=== PATIENT | female | born 1960 | race Caucasian/White ===

== ENCOUNTER 2017-06-28 10:04 | Emergency (ER) | payer MEDICAID ==
[~2017-06-28] VITALS: Ht 5283.9 cm; Wt 101.0 kg
[~2017-06-28 10:04] MED LIST: ALBU6.7H3 IH; ATOR20TA PO; BISA10SU60 RC; BREX2TAB PO; ELVI1TAB3 PO; MONT10TA24 PO; PANT40TA4 PO; TOPI50TA24 PO; VENL75TA4 PO
[2017-06-28 12:47] VITALS: BP 137/68
== END 2017-06-28 12:48 | disposition home or self-care (01) ==
LOC: ER 10:04
DX: S20.211A Contusion of right front wall of thorax, initial encounter (principal); G43.909 Migraine, unspecified, not intractable, without status migrainosus; J45.909 Unspecified asthma, uncomplicated; Z87.442 Personal history of urinary calculi; Z88.0 Allergy status to penicillin; Z88.2 Allergy status to sulfonamides; Z79.899 Other long term (current) drug therapy; W01.0XXA Fall on same level from slipping, tripping and stumbling without subsequent striking against object, initial encounter; Y93.89 Activity, other specified; Y92.89 Other specified places as the place of occurrence of the external cause; Y99.8 Other external cause status
CPT/HCPCS: 71101; 99284

== ENCOUNTER 2017-12-02 12:52 | Emergency (ER) | payer MEDICAID ==
[~2017-12-02] VITALS: Ht 160 cm; Wt 100.0 kg
[2017-12-02 13:02] VITALS: BP 115/73
[2017-12-02] MEDS ORDERED: clindamycin 150mg capsule PO ONE (13:15)
[2017-12-02] MEDS ORDERED: CLIN300C37 PO (13:17)
== END 2017-12-02 13:42 | disposition home or self-care (01) ==
LOC: ER 12:53
DX: L03.116 Cellulitis of left lower limb (principal); G43.909 Migraine, unspecified, not intractable, without status migrainosus; J45.909 Unspecified asthma, uncomplicated; Z88.0 Allergy status to penicillin; Z88.2 Allergy status to sulfonamides; Z79.899 Other long term (current) drug therapy
CPT/HCPCS: 99283

== ENCOUNTER 2018-05-05 10:46 | Emergency (ER) | payer MEDICAID ==
[~2018-05-05] VITALS: Ht 160 cm; Wt 91.3 kg
[2018-05-05 11:36] VITALS: BP 118/63
== END 2018-05-05 12:53 | disposition home or self-care (01) ==
LOC: ER 10:46
DX: R22.9 Localized swelling, mass and lump, unspecified (principal); J45.909 Unspecified asthma, uncomplicated; E11.9 Type 2 diabetes mellitus without complications; F17.200 Nicotine dependence, unspecified, uncomplicated; E66.9 Obesity, unspecified; Z88.0 Allergy status to penicillin; Z88.2 Allergy status to sulfonamides; Z79.899 Other long term (current) drug therapy
CPT/HCPCS: 99281

== ENCOUNTER 2019-06-13 08:39 | Emergency (ER) | payer MEDICAID ==
[~2019-06-13] VITALS: Ht 160 cm; Wt 102.0 kg
[~2019-06-13 08:39] MED LIST changes: -MONT10TA24 PO; +MONT10TA26 PO
[2019-06-13] MEDS ORDERED: ipratropium/albuterol 3ml nebule NEB ONE (08:55)
[2019-06-13] MEDS ORDERED: AZIT250T PO (11:02)
[2019-06-13] MEDS ORDERED: BENZ-16 PO (11:02)
[2019-06-13 11:22] VITALS: BP 151/74
== END 2019-06-13 11:23 | disposition home or self-care (01) ==
LOC: ER 08:39
DX: J06.9 Acute upper respiratory infection, unspecified (principal); J45.909 Unspecified asthma, uncomplicated; G43.909 Migraine, unspecified, not intractable, without status migrainosus; G47.30 Sleep apnea, unspecified; E11.9 Type 2 diabetes mellitus without complications; F32.9 Major depressive disorder, single episode, unspecified; Z87.442 Personal history of urinary calculi; Z88.0 Allergy status to penicillin; Z88.2 Allergy status to sulfonamides; Z79.899 Other long term (current) drug therapy
CPT/HCPCS: 71046; 87502; 87503; 94640; 94760; 99284

== ENCOUNTER 2019-09-30 15:38 | Inpatient (IN) | payer MEDICAID ==
[~2019-09-30] VITALS: Ht 160 cm; Wt 105.6 kg
[~2019-09-30 15:38] MED LIST changes: +AZIT250T PO
--- NOTE | 2019-09-30 16:02 | NUR ---
To CT at this time with patient via wheelchair. Patient awake, alert, calm, no signs of distress noted.
--- NOTE | 2019-09-30 16:08 | NUR ---
Patient to Xray via wheelchair, Stroke RN at bedside, TALIA Abad at bedside.
[2019-09-30 16:22] LABS: PARTIAL THROMBOPLASTIN TIME 24 SECONDS (22-32)
[2019-09-30 16:29] LABS: BASOPHILS # (AUTO) 0.1 X10'3 (0-0.2); EOSINOPHILS # (AUTO) 0.3 X10'3 (0-0.9); EOSINOPHILS % (AUTO) 3.7 % (0-6); HEMATOCRIT 42.2 % (35.0-45.0); HEMOGLOBIN 14.3 g/dl (12.0-16.0); LYMPHOCYTES # (AUTO) 2.3 X10'3 (1.1-4.8); LYMPHOCYTES % (AUTO) 29.5 % (21-51); MEAN CORPUSCULAR HEMOGLOBIN 31.9 PG (27.0-31.0); MEAN PLATELET VOLUME 7.4 FL (7.4-10.4); MONOCYTES # (AUTO) 0.5 X10'3 (0-0.9); MONOCYTES % (AUTO) 6.3 % (2-12); NEUTROPHILS # (AUTO) 4.7 X10'3 (1.8-7.7); NEUTROPHILS % (AUTO) 59.5 % (42-75); PLATELET COUNT 282 X10'3 (140-440); RED BLOOD COUNT 4.48 X10'6 (4.20-5.60); RED CELL DISTRIBUTION WIDTH 13.2 % (11.5-14.5); WHITE BLOOD COUNT 7.8 X10'3 (4.5-11.0)
[2019-09-30 16:30] LABS: ALANINE AMINOTRANSFERASE 22 U/L (12-78); ALBUMIN 3.6 G/DL (3.4-5.0); ALBUMIN/GLOBULIN RATIO 0.9 (1.1-1.5); ALKALINE PHOSPHATASE 130 IU/L (46-116); ANION GAP 9 (8-16); ASPARTATE AMINO TRANSFERASE 16 U/L (10-37); BILIRUBIN,TOTAL 0.2 MG/DL (0.1-1.0); BLOOD UREA NITROGEN 28 MG/DL (7-18); BUN/CREATININE RATIO 18.9 (6.6-38.0); CALCIUM 9.5 MG/DL (8.5-10.1); CHLORIDE 110 MMOL/L (99-107); CREATININE 1.48 MG/DL (0.40-0.90); GLUCOSE 114 MG/DL (70-104); POTASSIUM 4.2 MMOL/L (3.5-5.1); SODIUM 143 MMOL/L (135-145); TOTAL CARBON DIOXIDE 24.1 MMOL/L (24-32); TOTAL PROTEIN 7.4 G/DL (6.4-8.2); TROPONIN I < 0.04 NG/ML (0.0-0.05); eGFR 36 ML/MIN
[2019-09-30] MEDS ORDERED: aspirin 81mg tab.chew PO ONE (16:30)
[2019-09-30] MEDS ORDERED: ondansetron/PF 4mg/2ml inj IV PRN (17:10)
[2019-09-30] MEDS ORDERED: acetaminophen 325mg tablet PO PRN (17:10)
[2019-09-30] MEDS ORDERED: mag hydrox/Alum hydrox/simeth 30ml oral suspension PO PRN (17:10)
[2019-09-30] MEDS ORDERED: magnesium hydroxide 30ml (MOM) UD suspension PO PRN (17:10)
[2019-09-30 17:39] LABS: CHOL/HDL RATIO 2.5 (0.00-4.99); CHOLESTEROL 141 MG/DL (0-200); HDL CHOLESTEROL 56 MG/DL (35-60); LDL CHOLESTEROL 67 MG/DL (50-100); TRIGLYCERIDES 107 MG/DL (20-135)
[2019-09-30 20:00] VITALS: BP 129/57
[2019-09-30] MEDS ORDERED: BICT1TAB PO (20:14)
[2019-09-30] MEDS: heparin, porcine 5000 units/ml vial SQ SCH (22:28)
[2019-09-30] MEDS: normal saline 1000ml 1,000 ML IV SCH (22:28)
[2019-09-30] MEDS: topiramate 25mg tablet PO SCH (22:29)
[2019-10-01 02:00] VITALS: BP 94/61
[2019-10-01 06:00] VITALS: BP 159/78
[2019-10-01 06:09] LABS: ALBUMIN 3.1 G/DL (3.4-5.0); ANION GAP 12 (8-16); BASOPHILS # (AUTO) 0.1 X10'3 (0-0.2); BASOPHILS % (AUTO) 1.1 % (0-1); BLOOD UREA NITROGEN 30 MG/DL (7-18); BUN/CREATININE RATIO 21.4 (6.6-38.0); CALCIUM 8.4 MG/DL (8.5-10.1); CHLORIDE 110 MMOL/L (99-107); EOSINOPHILS # (AUTO) 0.3 X10'3 (0-0.9); EOSINOPHILS % (AUTO) 4.7 % (0-6); GLUCOSE 112 MG/DL (70-104); HEMATOCRIT 39.5 % (35.0-45.0); HEMOGLOBIN 13.2 g/dl (12.0-16.0); LYMPHOCYTES # (AUTO) 2.1 X10'3 (1.1-4.8); LYMPHOCYTES % (AUTO) 29.8 % (21-51); MEAN CORPUSCULAR HEMOGLOBIN 31.8 PG (27.0-31.0); MEAN CORPUSCULAR HGB CONC 33.5 g/dL (33.0-36.5); MEAN CORPUSCULAR VOLUME 95.1 FL (78-98); MEAN PLATELET VOLUME 7.4 FL (7.4-10.4); MONOCYTES # (AUTO) 0.5 X10'3 (0-0.9); MONOCYTES % (AUTO) 6.9 % (2-12); NEUTROPHILS # (AUTO) 4.1 X10'3 (1.8-7.7); NEUTROPHILS % (AUTO) 57.5 % (42-75); PLATELET COUNT 245 X10'3 (140-440); POTASSIUM 3.8 MMOL/L (3.5-5.1); RED BLOOD COUNT 4.16 X10'6 (4.20-5.60); RED CELL DISTRIBUTION WIDTH 13.3 % (11.5-14.5); SODIUM 145 MMOL/L (135-145); TOTAL CARBON DIOXIDE 23.5 MMOL/L (24-32); WHITE BLOOD COUNT 7.1 X10'3 (4.5-11.0); eGFR 39 ML/MIN
--- NOTE | 2019-10-01 06:30 | NUR ---
Patient in room [facility] 4015. I have received report from TALIA Sultana and had the opportunity to ask questions and assume patient care.
[2019-10-01] MEDS ORDERED: atorvastatin 10mg tablet PO SCH (08:00)
[2019-10-01] MEDS ORDERED: aspirin 81mg tablet.DR PO SCH (08:00)
[2019-10-01] MEDS: normal saline 1000ml 1,000 ML IV SCH (08:07)
[2019-10-01] MEDS: topiramate 25mg tablet PO SCH (08:10)
[2019-10-01] MEDS: heparin, porcine 5000 units/ml vial SQ SCH (08:10)
[2019-10-01 10:00] VITALS: BP 112/56
[2019-10-01] MEDS ORDERED: BREX0.5T PO (11:36)
[2019-10-01] MEDS ORDERED: MELO-102 PO (11:36)
--- NOTE | 2019-10-01 16:15 | NUR ---
Received discharge orders from Dr. Elizabeth. Shae RN picked up home meds from Pharmacy and pt signed paperwork that she received her medications. IV dc'd with cannula intact. No redness/swelling at insertion site. Bandaid applied over site. Reviewed discharge paperwork with pt and transported via w/c to front parking area for pickup by her in personal vehicle.
== END 2019-10-01 16:15 | disposition home or self-care (01) | DRG 54 ==
LOC: ER 15:39 → ED HOLD 17:08 → ORTHO 4S 19:45 → OBSVTOIN 10-01 08:52
PROVIDERS: ADMIT Family Medicine; ATTEND Family Medicine
PROC: 5A09357 Assistance with Respiratory Ventilation, Less than 24 Consecutive Hours, Continuous Positive Airway Pressure (ICD-10-PCS; principal; 2019-10-01)
DX: G43.909 Migraine, unspecified, not intractable, without status migrainosus (principal); E66.01 Morbid (severe) obesity due to excess calories; E11.9 Type 2 diabetes mellitus without complications; E78.5 Hyperlipidemia, unspecified; G45.9 Transient cerebral ischemic attack, unspecified; G47.30 Sleep apnea, unspecified; J45.909 Unspecified asthma, uncomplicated; Z82.49 Family history of ischemic heart disease and other diseases of the circulatory system; Z82.5 Family history of asthma and other chronic lower respiratory diseases; Z86.73 Personal history of transient ischemic attack (TIA), and cerebral infarction without residual deficits; Z87.442 Personal history of urinary calculi; Z88.0 Allergy status to penicillin; Z88.2 Allergy status to sulfonamides; Z88.8 Allergy status to other drugs, medicaments and biological substances; Z68.41 Body mass index [BMI] 40.0-44.9, adult
CPT/HCPCS: 36415; 70450; 70544; 70551; 71045; 72141; 72146; 80048; 80053; 80061; 82948; 84484; 85025; 85610; 85730; 87081; 92508; 92616; 93005; 93306; 93880; 97110; 97116; 97162; 97530; 99285; G0378; J1644; J7030

== ENCOUNTER 2020-06-19 19:54 | Emergency (ER) | payer MEDICAID ==
[~2020-06-19] VITALS: Ht 160 cm; Wt 107.4 kg
[~2020-06-19 19:54] MED LIST changes: -AZIT250T PO; +BICT1TAB PO; -BISA10SU60 RC; +BREX0.5T PO; -BREX2TAB PO; -ELVI1TAB3 PO; +MELO-102 PO; -MONT10TA26 PO; +MONT10TA97 PO; -PANT40TA4 PO
--- NOTE | 2020-06-19 20:19 | NUR ---
REPORTS HIV POSITIVE
[2020-06-19] MEDS ORDERED: normal saline 1000ML IV soln IVB ONE ×2 (20:25)
[2020-06-19] MEDS ORDERED: ondansetron/PF 4mg/2ml inj IV ONE (20:25)
[2020-06-19] MEDS ORDERED: pantoprazole 40 MG vial IV ONE (20:25)
[2020-06-19 21:35] LABS: BASOPHILS % (AUTO) 0.8 % (0-1); EOSINOPHILS # (AUTO) 0.2 X10'3 (0-0.9); EOSINOPHILS % (AUTO) 2.8 % (0-6); HEMOGLOBIN 14.3 g/dl (12.0-16.0); LYMPHOCYTES # (AUTO) 1.7 X10'3 (1.1-4.8); LYMPHOCYTES % (AUTO) 29.1 % (21-51); MEAN CORPUSCULAR HEMOGLOBIN 31.1 PG (27.0-31.0); MEAN CORPUSCULAR HGB CONC 34.1 g/dL (33.0-36.5); MEAN PLATELET VOLUME 8.2 FL (7.4-10.4); MONOCYTES # (AUTO) 0.4 X10'3 (0-0.9); MONOCYTES % (AUTO) 6.4 % (2-12); NEUTROPHILS # (AUTO) 3.5 X10'3 (1.8-7.7); NEUTROPHILS % (AUTO) 60.9 % (42-75); PLATELET COUNT 255 X10'3 (140-440); RED BLOOD COUNT 4.61 X10'6 (4.20-5.60); RED CELL DISTRIBUTION WIDTH 13.5 % (11.5-14.5); WHITE BLOOD COUNT 5.7 X10'3 (4.5-11.0)
[2020-06-19 21:46] LABS: ALANINE AMINOTRANSFERASE 31 U/L (12-78); ALBUMIN 3.6 G/DL (3.4-5.0); ALBUMIN/GLOBULIN RATIO 0.9 (1.1-1.5); ALKALINE PHOSPHATASE 158 IU/L (46-116); ANION GAP 10 (8-16); ASPARTATE AMINO TRANSFERASE 22 U/L (10-37); BILIRUBIN,TOTAL 0.3 MG/DL (0.1-1.0); BLOOD UREA NITROGEN 16 MG/DL (7-18); BUN/CREATININE RATIO 13.4 (6.6-38.0); CALCIUM 9.5 MG/DL (8.5-10.1); CHLORIDE 110 MMOL/L (99-107); CREATININE 1.19 MG/DL (0.40-0.90); GLUCOSE 131 MG/DL (70-104); LIPASE 66 U/L (73-393); POTASSIUM 3.9 MMOL/L (3.5-5.1); SODIUM 144 MMOL/L (135-145); TOTAL PROTEIN 7.7 G/DL (6.4-8.2); eGFR 46 ML/MIN
[2020-06-19] MEDS ORDERED: ONDA8TAB13 PO (21:49)
[2020-06-19] MEDS ORDERED: PANT-47 PO (21:49)
[2020-06-19 22:09] LABS: CLARITY,URINE CLEAR (Clear); COLOR,URINE YELLOW (Yellow); GLUCOSE, URINE NEGATIVE (Neg); KETONES,URINE NEGATIVE (Neg); LEUKOCYTE ESTERASE ,URINE TRACE (Neg); NITRITES, URINE NEGATIVE (Neg); OCCULT BLOOD,URINE SMALL (Neg); PROTEIN,URINE TRACE mg/dl (Neg); UROBILINOGEN,URINE 0.2 E.U/dL (0.2-1.0)
[2020-06-19 22:16] LABS: UA COLLECTION TYPE CLN CATCH MIDSTREAM
[2020-06-19 22:17] LABS: BACTERIA,URINE FEW /HPF (Neg); RBC,URINE 0-2 /HPF (0-2); SQUAMOUS EPITHELIAL CELL,UR FEW /LPF (FEW)
[2020-06-19 22:38] VITALS: BP 159/97
== END 2020-06-19 22:34 | disposition home or self-care (01) ==
LOC: ER 19:54
DX: K52.9 Noninfective gastroenteritis and colitis, unspecified (principal); R11.2 Nausea with vomiting, unspecified; R10.84 Generalized abdominal pain; G43.909 Migraine, unspecified, not intractable, without status migrainosus; J45.909 Unspecified asthma, uncomplicated; E11.9 Type 2 diabetes mellitus without complications; F32.9 Major depressive disorder, single episode, unspecified; F17.200 Nicotine dependence, unspecified, uncomplicated; Z87.442 Personal history of urinary calculi; Z87.440 Personal history of urinary (tract) infections; Z88.0 Allergy status to penicillin; Z88.2 Allergy status to sulfonamides; Z79.899 Other long term (current) drug therapy
CPT/HCPCS: 36415; 71045; 80053; 81001; 83690; 85025; 87088; 96361; 96374; 96375; 99284; C9113; J2405; J7030

== ENCOUNTER 2021-02-02 18:15 | Emergency (ER) | payer MEDICAID ==
[~2021-02-02] VITALS: Ht 160 cm; Wt 100.0 kg
[~2021-02-02 18:15] MED LIST changes: +MONT10TA32 PO; -MONT10TA97 PO; +ONDA8TAB13 PO; +PANT-47 PO
[2021-02-02 18:35] VITALS: BP 112/62
[2021-02-02 19:23] LABS: BASOPHILS # (AUTO) 0.1 X10'3 (0-0.2); BASOPHILS % (AUTO) 0.8 % (0-1); EOSINOPHILS # (AUTO) 0.3 X10'3 (0-0.9); EOSINOPHILS % (AUTO) 4.9 % (0-6); HEMATOCRIT 41.9 % (35.0-45.0); HEMOGLOBIN 14.2 g/dl (12.0-16.0); LYMPHOCYTES % (AUTO) 14.5 % (21-51); MEAN CORPUSCULAR HEMOGLOBIN 30.9 PG (27.0-31.0); MEAN CORPUSCULAR VOLUME 90.9 FL (78-98); MEAN PLATELET VOLUME 7.1 FL (7.4-10.4); MONOCYTES # (AUTO) 0.4 X10'3 (0-0.9); NEUTROPHILS # (AUTO) 5.2 X10'3 (1.8-7.7); NEUTROPHILS % (AUTO) 73.8 % (42-75); PLATELET COUNT 262 X10'3 (140-440); RED BLOOD COUNT 4.61 X10'6 (4.20-5.60); RED CELL DISTRIBUTION WIDTH 13.7 % (11.5-14.5)
[2021-02-02 19:37] LABS: ALANINE AMINOTRANSFERASE 18 U/L (12-78); ALBUMIN 3.1 G/DL (3.4-5.0); ALBUMIN/GLOBULIN RATIO 0.7 (1.1-1.5); ALKALINE PHOSPHATASE 163 IU/L (46-116); ANION GAP 8 (8-16); ASPARTATE AMINO TRANSFERASE 16 U/L (10-37); BILIRUBIN,TOTAL 0.2 MG/DL (0.1-1.0); BLOOD UREA NITROGEN 17 MG/DL (7-18); BUN/CREATININE RATIO 11.3 (6.6-38.0); CALCIUM 8.8 MG/DL (8.5-10.1); CHLORIDE 105 MMOL/L (99-107); GLUCOSE 234 MG/DL (70-104); POTASSIUM 3.8 MMOL/L (3.5-5.1); SODIUM 139 MMOL/L (135-145); TOTAL CARBON DIOXIDE 25.6 MMOL/L (24-32); TOTAL PROTEIN 7.3 G/DL (6.4-8.2); eGFR 36 ML/MIN
[2021-02-02] MEDS ORDERED: AZIT250T2 PO (19:49)
[2021-02-02] MEDS ORDERED: PRED20TA PO (19:49)
[2021-02-02] MEDS ORDERED: ALBU6.7H9 INH (19:49)
== END 2021-02-02 20:07 | disposition home or self-care (01) ==
LOC: ER 18:16
DX: J40 Bronchitis, not specified as acute or chronic (principal); Z20.822 Contact with and (suspected) exposure to COVID-19; G40.909 Epilepsy, unspecified, not intractable, without status epilepticus; G47.30 Sleep apnea, unspecified; E11.9 Type 2 diabetes mellitus without complications; F17.200 Nicotine dependence, unspecified, uncomplicated; Z87.440 Personal history of urinary (tract) infections; Z21 Asymptomatic human immunodeficiency virus [HIV] infection status; Z87.442 Personal history of urinary calculi; Z79.2 Long term (current) use of antibiotics; Z79.899 Other long term (current) drug therapy; Z88.0 Allergy status to penicillin
CPT/HCPCS: 36415; 71045; 80053; 85025; 87635; 99284; C9803

== ENCOUNTER 2021-02-19 05:05 | Emergency (ER) | payer MEDICAID ==
[~2021-02-19] VITALS: Ht 160 cm; Wt 104.5 kg
[~2021-02-19 05:05] MED LIST changes: +ALBU6.7H9 INH
[2021-02-19] MEDS ORDERED: acetaminophen 325mg tablet PO ONE (05:30)
[2021-02-19] MEDS ORDERED: HYDROcodone/acetaminophen 5mg/325mg tablet PO ONE (05:30)
[2021-02-19] MEDS ORDERED: ketorolac trometh inj. 60 MG/2 ML VIAL IM ONE (05:30)
[2021-02-19] MEDS ORDERED: LIDOcaine 5% patch TP ONE (05:30)
[2021-02-19] MEDS ORDERED: aspirin 81mg tab.chew PO ONE (05:30)
[2021-02-19] MEDS ORDERED: HYDROcodone/acetaminophen 10/325mg tab PO ONE (06:15)
[2021-02-19 06:37] LABS: BASOPHILS # (AUTO) 0.1 X10'3 (0-0.2); BASOPHILS % (AUTO) 1.1 % (0-1); EOSINOPHILS # (AUTO) 0.2 X10'3 (0-0.9); EOSINOPHILS % (AUTO) 3.1 % (0-6); HEMATOCRIT 41.7 % (35.0-45.0); HEMOGLOBIN 14.3 g/dl (12.0-16.0); LYMPHOCYTES # (AUTO) 1.8 X10'3 (1.1-4.8); LYMPHOCYTES % (AUTO) 25.5 % (21-51); MEAN CORPUSCULAR HEMOGLOBIN 31.1 PG (27.0-31.0); MEAN CORPUSCULAR HGB CONC 34.4 g/dL (33.0-36.5); MEAN CORPUSCULAR VOLUME 90.6 FL (78-98); MEAN PLATELET VOLUME 7.3 FL (7.4-10.4); MONOCYTES # (AUTO) 0.4 X10'3 (0-0.9); MONOCYTES % (AUTO) 6.2 % (2-12); NEUTROPHILS # (AUTO) 4.4 X10'3 (1.8-7.7); NEUTROPHILS % (AUTO) 64.1 % (42-75); PLATELET COUNT 295 X10'3 (140-440); RED CELL DISTRIBUTION WIDTH 13.3 % (11.5-14.5); WHITE BLOOD COUNT 6.9 X10'3 (4.5-11.0)
[2021-02-19 07:11] LABS: ALANINE AMINOTRANSFERASE 22 U/L (12-78); ALBUMIN 3.2 G/DL (3.4-5.0); ALBUMIN/GLOBULIN RATIO 0.8 (1.1-1.5); ALKALINE PHOSPHATASE 147 IU/L (46-116); ANION GAP 11 (8-16); ASPARTATE AMINO TRANSFERASE 13 U/L (10-37); BILIRUBIN,TOTAL 0.5 MG/DL (0.1-1.0); BLOOD UREA NITROGEN 19 MG/DL (7-18); BUN/CREATININE RATIO 12.9 (6.6-38.0); CALCIUM 8.5 MG/DL (8.5-10.1); CHLORIDE 107 MMOL/L (99-107); CREATININE 1.47 MG/DL (0.40-0.90); GLUCOSE 170 MG/DL (70-104); POTASSIUM 3.9 MMOL/L (3.5-5.1); SODIUM 141 MMOL/L (135-145); TOTAL CARBON DIOXIDE 22.9 MMOL/L (24-32); TOTAL PROTEIN 7.2 G/DL (6.4-8.2); eGFR 36 ML/MIN
[2021-02-19 07:21] LABS: MAGNESIUM 2.3 MG/DL (1.5-2.4)
[2021-02-19 08:11] VITALS: BP 140/78
[2021-02-19] MEDS ORDERED: HYDR-3972 PO (08:11)
== END 2021-02-19 08:16 | disposition home or self-care (01) ==
LOC: ER 05:05
DX: S29.9XXA Unspecified injury of thorax, initial encounter (principal); R05.9 Cough, unspecified; G43.909 Migraine, unspecified, not intractable, without status migrainosus; J45.909 Unspecified asthma, uncomplicated; G47.30 Sleep apnea, unspecified; E11.9 Type 2 diabetes mellitus without complications; Z87.442 Personal history of urinary calculi; Z87.440 Personal history of urinary (tract) infections; Z21 Asymptomatic human immunodeficiency virus [HIV] infection status; Z88.0 Allergy status to penicillin; Z88.2 Allergy status to sulfonamides; Z79.899 Other long term (current) drug therapy; X58.XXXA Exposure to other specified factors, initial encounter; Y93.89 Activity, other specified; Y92.89 Other specified places as the place of occurrence of the external cause; Y99.8 Other external cause status
CPT/HCPCS: 36415; 71045; 80053; 83735; 83880; 84484; 85025; 93005; 96372; 99285; J1885

== ENCOUNTER 2021-05-11 09:35 | Emergency (ER) | payer MEDICAID ==
[~2021-05-11] VITALS: Ht 160 cm; Wt 104.5 kg
[~2021-05-11 09:35] MED LIST changes: +MONT-40 PO; -MONT10TA32 PO
[2021-05-11 10:06] VITALS: BP 159/85
--- NOTE | 2021-05-11 10:10 | NUR ---
Greeted pt and her spouse.
--- NOTE | 2021-05-11 10:15 | NUR ---
Upon arival pt was placed in the open driveway with a portable heater 10ft away (on high). When I arrived, I greated the patients and began cleaning and adjusting the RAP area. Pt called me a "Rude Bitch!" She said that I was only worried about my own comfort and not hers. I tried to explain that I was clean ing/adjusting the area so that I could place her and her spouse in a warm cubby. She continued to escalate. I notied out charge nurse, TALIA Lopez.
--- NOTE | 2021-05-11 10:28 | NUR ---
Pt through her blanket on the ground and left the area.
== END 2021-05-11 10:37 | disposition left against medical advice (07) ==
LOC: ER 09:36
DX: J11.1 Influenza due to unidentified influenza virus with other respiratory manifestations (principal); Z53.21 Procedure and treatment not carried out due to patient leaving prior to being seen by health care provider

== ENCOUNTER → 2023-09-29 | Outpatient (CLI) | payer MEDICAID ==
[~2023-09-29] MED LIST changes: +ALBU6.7H14 INH; -ALBU6.7H9 INH; +TOPI-95 PO; -TOPI50TA24 PO
== END | disposition home or self-care (01) ==
LOC: RT 07:00
PROVIDERS: ATTEND General Practice
DX: J45.909 Unspecified asthma, uncomplicated (principal); R06.02 Shortness of breath; R07.9 Chest pain, unspecified
CPT/HCPCS: 71046; 94010; 94729